=== PATIENT | male | born 1985 | race Caucasian/White ===

== ENCOUNTER 2017-12-19 01:58 | Emergency (ER) | payer SELFPAY ==
[2017-12-19 02:27] LABS: Bilirubin Negative (Negative); Blood, Urine Small (Negative); Clarity CLEAR (Clear); Glucose, Urine (Dipstick) Negative (Negative); Leukocyte Negative (Negative); Nitrite Negative (Negative); Protein, Urine (Dipstick) Negative (Neg-Trace); Specific Gravity, Urine 1.022 (1.002-1.036); Urobilinogen 0.2 mg/dL (0.2-1.0); pH, Urine 5.5 (5.0-9.0)
[2017-12-19 02:29] LABS: Bacteria/HPF None Seen HPF (None Seen); Hyaline Casts/LPF 0-3 HYALINE CAST LPF (0-3 Hyaline); Pathc Cast-AUWi Flag 0.14 (0-2.49); Squamous Epithelial 0-3 HPF (0-3)
[2017-12-19] MEDS ORDERED: Ketorolac Tromethamine 60 MG/2 ML VIAL ONE (02:49)
[2017-12-19] MEDS ORDERED: HYDROcodone/Acetaminophen 5/325 mg Tablet ONE (04:55)
--- NOTE | 2017-12-19 08:22 | CT ---
PRELIMINARY REPORT/[facility]/EMERGENCY AFTER HOURS PROCEDURE: EXAM: CT Abdomen and Pelvis Without Intravenous Contrast EXAM DATE/TIME: 12/19/2017 2:57 AM CLINICAL HISTORY: 32 years old, male; Pain; Abdominal pain; Flank; Right; Patient HX: RT flank pain TECHNIQUE: Axial computed tomography images of the abdomen and pelvis without intravenous contrast. Coronal refo rmatted images were created and reviewed. COMPARISON: No relevant prior studies available. FINDINGS: Lower thorax: No acute findings. ABDOMEN: Liver: Normal. No mass. Gallbladder and bile ducts: Normal. No calcified stones. No ductal dilation. Pancreas: Normal. No ductal dilation. Spleen: Normal. No splenomegaly. Adrenals: Normal. No mass. Kidneys and ureters: Small 1 mm stone within the right ureterovesicular junction (UVJ). Mild right re nal collecting system dilatation and perinephric fat stranding. Stomach and bowel: No evidence of bowel obstruction. Appendix: Visualized portions of appendix appear normal. PELVIS: Bladder: Unremarkable as visualized. Reproductive: Prostate appears within normal limits. ABDOMEN and PELVIS: Intraperitoneal space: Normal. No free air. No significant fluid collection. Bones/joints: No acute fracture. No dislocation. Soft tissues: Unremarkable. Vasculature: Normal. No abdominal aortic aneurysm. Lymph nodes: Normal. No enlarged lymph nodes. IMPRESSION: 1. Small 1 mm stone within the right ureterovesicular junction (UVJ). Mild right obstructive uropathy and obstructive nephropathy. 2. No evidence of bowel obstruction. Thank you for allowing us to participate in the care of your patient. Dictated and Authenticated by: Neelima Vaughn MD 12/19/2017 4:46 AM Central Time ([place] & [place]) FINAL REPORT EMERGENCY AFTER HOURS CT ABDOMEN AND PELVIS: Date: 12/19/17 IMPRESSION: I agree with the preliminary interpretation given by Cindy that there is a subtle focus of increased d ensity in the expected location of the right UVJ that could reflect a tiny UVJ calculus. No significa nt obstructive change is evident. POS: [facility]
== END 2017-12-19 05:12 | disposition home or self-care (01) ==
LOC: ERS 01:58
DX: N20.0 Calculus of kidney (principal); F17.210 Nicotine dependence, cigarettes, uncomplicated
CPT/HCPCS: 74176; 81003; 81015; 96372; J1885

== ENCOUNTER 2018-02-08 09:33 | Emergency (ER) | payer SELFPAY ==
[2018-02-08] MEDS ORDERED: Ketorolac Tromethamine 30 MG/ML VIAL ONE (10:03)
--- NOTE | 2018-02-08 11:18 | CT ---
NONCONTRAST ABDOMEN AND PELVIC CT SCAN: HISTORY: A 32-year-old male with a history of intermittent left-sided abdominal pain for 3 days. FINDINGS: The lung bases are clear. The visualized liver, gallbladder, pancreas, spleen, and adrenal glands ar e unremarkable. No overt renal calculus. No evidence for obstructing calculus. Normal-appearing appendix. No evidence for large or small bowel obstruction. No abscess or abnormal fluid collectio n. IMPRESSION: Unremarkable abdomen and pelvic CT scan. No overt renal calculus or acute obstruction. POS: [facility]
[2018-02-08 11:21] LABS: Bilirubin Negative (Negative); Blood, Urine Negative (Negative); Clarity CLEAR (Clear); Glucose, Urine (Dipstick) Negative (Negative); Leukocyte Negative (Negative); Nitrite Negative (Negative); Protein, Urine (Dipstick) Negative (Neg-Trace); Specific Gravity, Urine 1.024 (1.002-1.036); Urobilinogen 0.2 mg/dL (0.2-1.0); pH, Urine 5.5 (5.0-9.0)
== END 2018-02-08 13:32 | disposition home or self-care (01) ==
LOC: ERS 09:33
DX: R10.9 Unspecified abdominal pain (principal); F17.210 Nicotine dependence, cigarettes, uncomplicated
CPT/HCPCS: 74176; 81003; 96361; 96374; J1885